=== PATIENT | male | born 1950 | race Caucasian/White ===

== ENCOUNTER 2017-11-19 13:13 | Outpatient (CLI) | payer MEDICARE, BC ==
--- NOTE | 2017-11-19 14:19 | ULT ---
SCROTAL ULTRASOUND INCLUDING COLOR AND SPECTRAL DOPPLER IMAGING: Date: 11/19/17 HISTORY: 67-year-old male with left-sided hydrocele. FINDINGS: Right testis measures 4.1 x 2.0 x 3.4 cm. There is a small right-sided hydrocele. Right-sided epididy mis appears unremarkable. Left testis measures 4.4 x 3.0 x 2.7 cm. Large left-sided hydrocele is somewhat difficult to measure since it is not completely included on one image but appears to measure at least 4.0 x 5.0 cm transve rsely. The left epididymis is poorly seen. There is no intratesticular mass. Vascular duplex with color and spectral Doppler imaging demonstrates arterial inflow and venous outfl ow to both testes. No evidence for testicular torsion. IMPRESSION: Normal left-sided hydrocele. Very small right-sided hydrocele. Very poorly defined left-sided epididy mis. No intratesticular mass or testicular torsion. POS: [facility]
== END 2017-11-19 13:14 | disposition home or self-care (01) ==
LOC: ULT 13:13
PROVIDERS: ATTEND Urology
DX: N43.3 Hydrocele, unspecified (principal)
CPT/HCPCS: 76870; 93976

== ENCOUNTER 2018-12-05 08:10 | Outpatient (CLI) | payer MEDICARE, BC ==
--- NOTE | 2018-12-05 10:26 | BD ---
BONE DENSITOMETRY USING DEXA: HISTORY: Screening for osteoporosis. FINDINGS: Lumbar Spine: BMD (g/cm2) L1 0.746 T-Score: -3.0 Z-Score: -2.2 L2 0.900 T-Score: -1.8 Z-Score: -0.9 L3 0.962 T-Score: -0.3 Z-Score: -0.4 L4 0.782 T-Score: -2.8 Z-Score: -1.9 L1-L4 0.851 T-Score: -2.2 Z-Score: -1.4 Femoral Neck: 0.639 T-Score: -2.1 Z-Score: -1.0 Total Femur: 0.783 T-Score: -1.7 Z-Score: -1.1 Impression: Overall osteopenia with osteoporosis at L1 and L4 vertebral bodies. POS: [facility]
== END 2018-12-05 08:11 | disposition home or self-care (01) ==
LOC: BICMAMMO 08:10
PROVIDERS: ATTEND Internal Medicine Rheumatology
DX: M81.0 Age-related osteoporosis without current pathological fracture (principal)
CPT/HCPCS: 77080

== ENCOUNTER 2018-12-07 12:33 | Outpatient (CLI) | payer MEDICARE, BC ==
--- NOTE | 2018-12-07 15:41 | RAD ---
SINGLE COLUMN BARIUM ENEMA. HISTORY Stricture. Incomplete colonoscopy. COMPARISON: None. EXPOSURE: 1.1 minutes. 76.5 mGy. 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 No differe ntial air fluid levels. No suspicious densities. No evidence of pneumoperitoneum. Single column barium enema was performed. There is evidence of narrowing at the level of the mid rani cending colon. During the images where the air contrast was filled with a single-column of barium, t he narrowing was persistent but barium did flow freely without any delay or obstruction. The postpro cedure images demonstrate barium in this region with persistent narrowing. There are some diverticula in the sigmoid flexure. Contrast refluxed into the distal small bowel via an incompetent ileocecal valve. Reflux of contrast into the appendix is not appreciated. IMPRESSION: Persistent narrowing involving the mid descending colon. POS: [facility]
== END 2018-12-07 12:34 | disposition home or self-care (01) ==
LOC: RAD 12:33
PROVIDERS: ATTEND Internal Medicine Gastroenterology
DX: K56.699 Other intestinal obstruction unspecified as to partial versus complete obstruction (principal)
CPT/HCPCS: 74270

== ENCOUNTER 2020-11-29 09:39 | Outpatient (CLI) | payer MEDICARE, BC ==
--- NOTE | 2020-11-29 14:03 | ULT ---
GALLBLADDER ULTRASOUND: History: Elevated LFTs FINDINGS: Exam is technically difficult due to bowel gas. The gallbladder appears mildly distended but no gallb ladder wall thickening or gallstones are noted. The common duct is 4 mm. The liver shows no focal abnormalities. Right kidney is normal in size and n ot obstructed. The pancreas is obscured. IMPRESSION: Mildly distended appearing gallbladder but no signs of any gallstones or gallbladder wall thickening. POS: [facility]
== END 2020-11-29 09:40 | disposition home or self-care (01) ==
LOC: BICULT 09:39
PROVIDERS: ATTEND Family Medicine
DX: R94.5 Abnormal results of liver function studies (principal); K82.8 Other specified diseases of gallbladder
CPT/HCPCS: 76705

== ENCOUNTER 2020-12-06 08:17 | Outpatient (CLI) | payer MEDICARE, BC ==
--- NOTE | 2020-12-06 14:10 | NM ---
NM Hida Scan W Drug History: Abnormal gallbladder ultrasound Comparison: Gallbladder ultrasound November 29, 2020 Findings: Abdominal imaging performed after the intravenous ministration 5.2 mCi technetium 99m mebro fenin. To evaluate for ejection fraction, 8 ounces of ensure was measured orally 1 hour post injection of radiopharmaceutical. Adequate hepatic uptake radiotracer. The gallbladder is seen clinically as well as the common bile du ct. There is excretion of radiotracer into the small bowel. No significant biliary contraction. Impression: 1. Patent cystic and common bile ducts. 2. Biliary dyskinesia with no significant gallbladder contraction after ensure meal.
== END 2020-12-06 08:18 | disposition home or self-care (01) ==
LOC: NM 08:17
PROVIDERS: ATTEND Family Medicine
DX: R93.2 Abnormal findings on diagnostic imaging of liver and biliary tract (principal); K82.8 Other specified diseases of gallbladder
CPT/HCPCS: 78227; A9537

== ENCOUNTER 2020-12-27 08:16 | Outpatient (CLI) | payer MEDICARE, BC | END 2020-12-27 08:17 | disposition home or self-care (01) | LOC: BICMAMMO 08:16 | PROVIDERS: ATTEND Internal Medicine Rheumatology | DX: M81.0 Age-related osteoporosis without current pathological fracture (principal); M85.89 Other specified disorders of bone density and structure, multiple sites | CPT/HCPCS: 77080 ==

== ENCOUNTER 2021-12-01 07:56 | Outpatient (CLI) | payer MEDICARE, BC | END 2021-12-01 07:57 | disposition home or self-care (01) | LOC: CT 07:56 | PROVIDERS: ATTEND Urology | DX: N28.1 Cyst of kidney, acquired (principal); K43.9 Ventral hernia without obstruction or gangrene | CPT/HCPCS: 74170; 82565 ==

== ENCOUNTER 2022-06-04 10:39 | Outpatient (CLI) | payer MEDICARE, BC ==
[2022-06-04] MEDS ORDERED: Iopamidol 370 76% 100 ML VIAL ONE (14:12)
== END 2022-06-04 10:40 | disposition home or self-care (01) ==
LOC: BICCT 10:39
PROVIDERS: ATTEND Urology
DX: N28.1 Cyst of kidney, acquired (principal)
CPT/HCPCS: 74170; 82565; Q9967

== ENCOUNTER 2022-11-25 08:01 | Outpatient (CLI) | payer MEDICARE, BC ==
[2022-11-25] MEDS ORDERED: Iopamidol-370 76% 500 ML 1 ML ONE (09:11)
== END 2022-11-25 08:02 | disposition home or self-care (01) ==
LOC: BICCT 08:01
PROVIDERS: ATTEND Urology
DX: N28.1 Cyst of kidney, acquired (principal)
CPT/HCPCS: 74170; 82565; Q9967

== ENCOUNTER 2022-12-07 08:49 | Outpatient (CLI) | payer MEDICARE, BC | END 2022-12-07 08:50 | disposition home or self-care (01) | LOC: BICMAMMO 08:49 | PROVIDERS: ATTEND Internal Medicine Rheumatology | DX: M81.8 Other osteoporosis without current pathological fracture (principal); M85.89 Other specified disorders of bone density and structure, multiple sites | CPT/HCPCS: 77080 ==

== ENCOUNTER 2024-01-13 08:53 | Outpatient (CLI) | payer MEDICARE | END 2024-01-13 08:54 | disposition home or self-care (01) | LOC: BICCT 08:53 | PROVIDERS: ATTEND Urology | DX: N28.1 Cyst of kidney, acquired (principal); K42.9 Umbilical hernia without obstruction or gangrene; K43.9 Ventral hernia without obstruction or gangrene; K46.9 Unspecified abdominal hernia without obstruction or gangrene | CPT/HCPCS: 74170; 82565 ==

== ENCOUNTER 2025-09-14 11:39 | Outpatient (CLI) | payer MEDICARE ==
[2025-09-14 12:38] LABS: #Basophils Less than 0.03 10x3/uL (0.0-0.2); #Eosinophils 0.06 10x3/uL (0.0-0.7); #Monocytes 0.43 10x3/uL (0.11-0.59); #Neutrophils 3.46 10x3/uL (1.40-6.50); %Basophils 0.4 % (0.0-1.0); %Eosinophils 1.3 % (0.0-10.0); %Lymphocytes 16.3 % (21.0-51.0); %Monocytes 9.0 % (0.0-10.0); %Neutrophils 72.4 % (42.0-75.0); Hematocrit 41.9 % (42.0-52.0); Hemoglobin 13.5 g/dL (14.0-18.0); Mean Corpuscular Hemoglobin 31.0 pg (27.0-31.0); Mean Corpuscular Volume 96.3 fL (78.0-98.0); Platelet Count 224 10x3/uL (130-400); Red Blood Cell (RBC) Count 4.35 mill/uL (4.70-6.10); White Blood Cell (WBC) Count 4.78 10x3/uL (4.8-10.8)
[2025-09-14 12:52] LABS: Bacteria/HPF None Seen HPF (None Seen); Glucose, Urine (Dipstick) Normal (Negative); Leukocyte Negative Leu/uL (Negative); Protein, Urine (Dipstick) Negative (Neg-Trace); RBC/HPF 0-3 HPF (0-3); Specific Gravity, Urine 1.016 (1.002-1.036); WBC/HPF 0-3 HPF (0-3)
[2025-09-14 12:57] LABS: ALT (SGPT) 38 U/L (Less than 45); AST (SGOT) 43 U/L (11-34); Albumin 3.7 g/dL (3.1-4.5); Alkaline Phosphatase 185 U/L (40-110); Anion Gap 11 mmol/L (10-20); BUN (Urea Nitrogen) 11 mg/dL (8.4-25.7); Bilirubin, Direct 0.2 mg/dL (0.1-0.3); Bilirubin, Total 0.3 mg/dL (0.3-1.2); Calc. Creatinine Clearance 0 mL/min (70-130); Calcium 9.0 mg/dL (7.8-10.44); Carbon Dioxide 29 mmol/L (23-31); Chloride 103 mmol/L (98-107); Glucose 97 mg/dL (83-110); INR-International Normal Ratio 1.0; PTT 32.3 sec (22.9-36.1); Potassium 4.2 mmol/L (3.5-5.1); Prothrombin Time 13.0 sec (12.0-14.7); Sodium 139 mmol/L (136-145)
== END 2025-09-14 11:40 | disposition home or self-care (01) ==
LOC: LABBT 11:39
PROVIDERS: ATTEND Urology
DX: Z01.818 Encounter for other preprocedural examination (principal); N43.3 Hydrocele, unspecified; N28.1 Cyst of kidney, acquired; R92.0 Mammographic microcalcification found on diagnostic imaging of breast; R35.0 Frequency of micturition; K43.9 Ventral hernia without obstruction or gangrene; E29.1 Testicular hypofunction
CPT/HCPCS: 80048; 80076; 81001; 85025; 85610; 85730; 87086; 93005; 93010

== ENCOUNTER 2025-09-28 06:24 | Day surgery (SDC) | payer MEDICARE ==
[2025-09-14 11:56] VITALS: BMI 25.5
[2025-09-28] MEDS ORDERED: fentaNYL PF 100 MCG/2 ML SYRINGE ONE (09:13)
[2025-09-28] MEDS ORDERED: Lidocaine 1% PF 5 ML VIAL ONE (09:14)
[2025-09-28] MEDS ORDERED: Ondansetron PF 4 MG/2 ML Vial ONE ×2 (09:14→10:24)
[2025-09-28] MEDS ORDERED: Glycopyrrolate 0.2 MG/ML 5 ML SYRINGE ONE (09:15)
[2025-09-28] MEDS ORDERED: Famotidine/PF 20 mg/2ml Vial ONE (09:46)
[2025-09-28] MEDS ORDERED: Bupivacaine 0.25% HCL 30 ML VIAL ONE (09:55)
[2025-09-28] MEDS ORDERED: PROPOFOL 200 MG/20 ML VIAL ONE (10:13)
[2025-09-28] MEDS ORDERED: CEFAZOLIN 1 GM VIAL ONE ×2 (10:29→11:48)
== END 2025-09-28 14:26 | disposition home or self-care (01) ==
LOC: SDC 06:24
PROVIDERS: ATTEND Urology
PROC: 0VBG0ZZ Excision of Left Spermatic Cord, Open Approach (ICD-10-PCS; principal; 2025-09-28)
DX: N43.3 Hydrocele, unspecified (principal); Z88.0 Allergy status to penicillin; Z91.018 Allergy to other foods
CPT/HCPCS: 55040; J0665; J1100; J1308; J2405; J2704; J0690